=== PATIENT | female | born 1960 | race Two or more races ===

== ENCOUNTER 2023-11-12 16:18 | Emergency (ER) | payer OTHER ==
[~2023-11-12] VITALS: Ht 167.6 cm; Wt 130.0 kg
[2023-11-12 17:32] LABS: Basophils # (auto) 0 10 ^3/uL (0-0.2); Basophils % (auto) 0.4 % (0.0-2.0); Eosinophils # (auto) 0 10 ^3/uL (0-0.8); Eosinophils % (auto) 0.3 % (0.0-7.0); Hematocrit 40.3 % (36.0-46.0); Hemoglobin 13.5 g/dL (12.2-16.2); Lymphocytes # (auto) 1.2 10 ^3/uL (0.4-5.4); Lymphocytes % (auto) 19.4 % (10.0-50.0); Mean Corpuscular Hemoglobin 29.8 pg (28.0-32.0); Mean Corpuscular Hgb Conc. 33.4 g/dL (32.0-36.0); Mean Corpuscular Volume 89.3 fL (80.0-100.0); Monocytes # (auto) 0.5 10 ^3/uL (0-1.3); Monocytes % (auto) 8.4 % (0.0-12.0); Neutrophils # (auto) 4.6 10 ^3/uL (1.6-8.6); Neutrophils % (auto) 71.5 % (37.0-80.0); Nucleated Red Blood Cells % 0.1 %; Platelet Count (auto) 333 10^3/uL (140-450); Red Blood Cells 4.52 10^6/uL (4.0-5.20); Red Cell Distribution Width 13.5 % (11.8-14.3); White Blood Cell 6.4 10^3/uL (4.4-10.8)
[2023-11-12 17:45] LABS: Alanine Aminotransferase 28 U/L (7-40); Albumin 4.8 g/dL (3.2-4.8); Alkaline Phosphatase 82 U/L (46-116); Anion Gap 10 (5-15); Aspartate Aminotransferase 20 U/L (13-40); BUN/Creatinine Ratio 15.4 (10.0-20.0); Bilirubin, Total 0.7 mg/dL (0.2-1.0); Blood Urea Nitrogen 14 mg/dL (9-23); Carbon Dioxide 23 mmol/L (20-30); Chloride 107 mmol/L (98-107); Glucose 129 mg/dL (74-106); Potassium 3.7 mmol/L (3.5-5.1); Sodium 140 mmol/L (136-145); Total Protein 7.5 g/dL (5.7-8.2)
[2023-11-12 17:58] LABS: Urine Bacteria None Seen /hpf (None Seen)
[2023-11-12 18:29] LABS: Urine Blood Negative /uL (Negative); Urine Clarity Clear (Clear); Urine Color Colorless (Yellow); Urine Protein, UAD Negative (Negative); Urine Specific Gravity 1.005 (1.001-1.035); Urine Urobilinogen Normal (Negative); Urine WBC <1 /hpf (0 - 5)
[2023-11-12 20:30] VITALS: PULSE 78; RESP 14; TEMP 98.3; O2SAT 98
[2023-11-12] MEDS: SODIUM CHLORIDE 0.9% 1,000 ML IV ONE (20:43)
[2023-11-12] MEDS: IOHEXOL 350 MG/ML 100ML IJ ONE ×2 (21:29→21:30)
[2023-11-12 23:15] VITALS: BP 157/67; PULSE 62; RESP 14; O2SAT 98
[2023-11-12] MEDS: HYDROcodone-ACET 10/325MG TAB PO ONE (23:15)
== END 2023-11-13 01:26 | disposition left against medical advice (07) ==
LOC: ER 16:18
DX: R53.1 Weakness (principal); R68.84 Jaw pain; M54.2 Cervicalgia; H57.10 Ocular pain, unspecified eye
CPT/HCPCS: 36415; 70496; 71046; 80053; 81001; 82962; 84484; 85025; 93005; 96360; 99285; J7030; Q9967

== ENCOUNTER 2024-02-24 08:47 | Emergency (ER) | payer OTHER ==
[~2024-02-24] VITALS: Ht 167.6 cm; Wt 59.5 kg
[2024-02-24 09:16] VITALS: BP 176/98; PULSE 91; RESP 18; TEMP 99.1; O2SAT 98
--- NOTE | 2024-02-24 09:24 | ED.PDOC ---
History of Present Illness(SKN HPI Comments A 63 YEAR OLD FEMALE PRESENTS TO THE ED WITH COMPLAINT OF DOG BITE OF LEFT HAND. PATIENT STATES SHE WAS BITTEN BY HER DOG YESTERDAY NIGHT ON HER LEFT HAND AND IS NOW EXPERIENCING LEFT HAND REDNESS AND SWELLING TODAY. PATIENT WAS CONCERNED PUNCTURE WOUNDS ON HER LEFT HAND ARE INFECTED. PATIENT DENIES FEVER, CHILLS, SHORTNESS OF BREATH, CHEST PAIN, ABDOMINAL PAIN, NAUSEA, VOMITING, HEADACHE, OR OTHER COMPLAINTS. NO OTHER SYMPTOMS OR MODIFYING FACTORS AT THIS TIME. PATIENT IS ALERT, ORIENTED X 4, AND HAS STEADY GAIT. Chief Complaint: Animal Bite Time Seen by MD: 09:03 Primary Care Provider: [facility] History of Present Illness: Nurses Notes, Medications, Allergies Allergies: Coded Allergies: Nitrofurantoin (Verified Allergy, Unknown, 02/24/24) Uncoded Allergies: SULFA (Allergy, Unknown, 11/12/23) Home Meds Active Scripts Naproxen (Naproxen) 500 Mg Tab, 500 MG PO BID, #30 TAB Prov:MINNIE CARO 02/24/24 Amoxicillin & Pot Clavulanate (Augmentin) 500 Mg Tab, 1 TAB PO BID, #20 TAB Prov:MINNIE CARO 02/24/24 Information Source: Patient Mode of Arrival: Ambulatory Severity: Moderate Timing: Days Duration: Since onset, Days Prehospital treatment: None Location: Hand (LEFT HAND) Mechanism: Dog Occurence: Indoors Object: None Condition of Object: None Retained Foreign Body: No Wound Type: Puncture Immunization Status of Animal: Current Tetanus: UTD History of: None Associated Signs and Symptoms: Redness, Swelling, Pain Past Medical History PAST MEDICAL HISTORY: Anxiety Surgical History: Denies all surgeries FREIGHT SEPARATOR History: No Pertinent FREIGHT SEPARATOR History Family History Family History: Reviewed,noncontributory to illness, No family hx of Cancer, No family hx of DM, No family hx of Heart fatuma, No family hx of HTN, No family hx ofKidney fatuma, No family hx of Liver fatuma, No family hx of Lung fatuma, No family hx of Stroke Social History Smoker: Non-Smoker Alcohol: Denies ETOH Use Drugs: Denies Drug Use Lives In: Home Constitutional: reports: others (ANXIOUS ); denies: chills, diaphoresis, fatigue, fever, malaise, sweats, weakness EENTM: denies: blurred vision, double vision, ear bleeding, ear discharge, ear drainage, ear pain, ear ringing, eye pain, eye redness, hearing loss, mouth pain, mouth swelling, nasal discharge, nose bleeding, nose congestion, nose pain, photophobia, tearing, throat pain, throat swelling, voice changes, others Respiratory: denies: cough, hemoptysis, orthopnea, SOB at rest, shortness of breath, SOB with excertion, stridor, wheezing, others Cardiovascular: denies: chest pain, dizzy spells, diaphoresis, Dyspnea on exertion, edema, irregular heart beat, left arm pain, lightheadedness, palpitations, PND, syncope, others Gastrointestinal: denies: abdomen distended, abdominal pain, blood streaked bowels, constipated, diarrhea, dysphagia, difficulty swallowing, hematemesis, melena, nausea, poor appetite, poor fluid intake, rectal bleeding, rectal pain, vomiting, others Genitourinary: denies: abnormal vagina bleeding, burning, dyspareunia, dysuria, flank pain, frequency, hematuria, incontinence, pain, , vagina di scharge, urgency, others Neurological: denies: dizziness, fainting, headache, left sided numbness, left sided weakness, numbness, paresthesia, pre-existing deficit, right sided numbness, right sided weakness, seizure, speech problems, tingling, tremors, weakness, others Musculoskeletal: denies: back pain, gout, joint pain, joint swelling, muscle pain, muscle stiffness, neck pain, others Integumetry: reports: wounds (PUNCTURE WOUND OF LEFT HAND WITH REDNESS AND SWELLING); denies: bruises, change in color, change in hair/nails, dryness, laceration, lesions, lumps, rash, others Allergic/Immunocompromised: denies: Difficulty Healing, Frequent Infections, Hives, Itching, others Hematologic/Lymphatic: denies: anemia, blood clots, easy bleeding, easy bruising, swollen glands, others Endocrine: denies: excessive hunger, excessive sweating, excessive thirst, excessive urination, flushing, intolerance to cold, intolerance to heat, unexplained weight gain, unexplained weight loss, others Psychiatric: denies: anxiety, bipolar disorder, depression, hopeless, panic disorder, schizophrenia, sleepless, suicidal, others All Other Systems: Reviewed and Negative Physical Exam General Appearance: No Apparent Distress, Normal, Other (ANXIOUS ) HEENT: Normal ENT Inspection, PERRL/EOMI, Pharynx Normal, TMs Normal Neck: Full Range of Motion, Non-Tender, Normal, Normal Inspection Respiratory: Chest Non-Tender, Lungs Clear, No Accessory Muscle Use, No Respiratory Distress, Normal Breath Sounds Cardiovascular: No Edema, No JVD, No Murmur, No Gallop, Normal Peripheral Pulses, Regular Rate/Rhythm Breast Exam: Deferred Gastrointestinal: No Organomegaly, Non Tender, No Pulsatile Mass, Normal Bowel Sounds, Soft Genitalia: Deferred Pelvic: Deferred Rectal: Deferred Extremities: No calf tenderness, Normal capillary refill, Normal range of motion, No pedal edema, Tender (WITH TWO SMALL PUNCTURE WOUNDS ON LEFT DORSAL HAND, NO BONY TENDERNESS AND DEFORMITY. ) Musculoskeletal : Apperance: Normal Neurologic: Alert, acting manager II-XII nml as Tested, No Motor Deficits, Normal Affect, Normal Mood, No Sensory Deficits Cerebellar Function: Normal Reflexes: Normal Skin: Dry, Warm, Wounds (TWO SMALL PUNCTURE WOUNDS WITH LOCALIZED REDNESS AND MILD SWELLING ON LEFT DORSAL HAND, NO OPEN WOUND AND PUS DRAINAGE, NEUROVASCULAR INTACT, NORMAL ROM. ) Peripheral Pulses: 2+ carotid (R), 2+ carotid (L), 2+ Radial (R), 2+ Radial (L) Lymphatic: No Adenopathy Was a procedure done? Was a procedure done?: No Differential Diagnosis (INTG) Differential Diagnosis: Abrasion, Cellulitis, Contusion, Fracture, Puncture Wound Differential Diagnosis: N/A Differential Diagnosis: N/A Abscess: N/A Differential Diagnosis: Cellulitis, Puncture Wound, N/A X-Ray, Labs, Meds, VS Vital Signs Date Time Temp Pulse Resp B/P (MAP) Pulse Ox O2 Delivery O2 Flow Rate FiO2 02/24/24 09:16 99.1 91 18 176/98 (124) 98 99.1 02/24/24 09:16 91 18 98 Room Air* 0 21 02/24/24 09:05 99.1 91 18 176/98 (124) 98 Current Medications Medications (Trade) Dose Ordered Sig/Geno Route Start Time Stop Time Status Last Admin Ceftriaxone Sodium (Rocephin) 1,000 mg ONCE ONCE IM 02/24/24 09:30 02/24/24 09:31 DC 02/24/24 09:26 PATIENT: PIPO GERONIMO LACCT: [id number]: [id number] : 1960 LOC: ER ROOM / BED: / AGE / SEX: 63 / F ADM STATUS: REG ER SERVICE 0916 ORDERING PHYSICIAN: MINNIE CARO PROCEDURE(s): LHAN - L HAND 3V XRAY REASON: PUNCTURE WOUND POST DOG BITE ORDER NUMBER(s): [id number], ACCESSION NUMBER(s): [id number] EXAM: XR Left Hand Complete, 3 or More Views CLINICAL INDICATION: PUNCTURE WOUND POST DOG BITE TECHNIQUE: Frontal, lateral and oblique views of the left hand. COMPARISON: None FINDINGS: BONES/JOINTS: Degenerative changes of the intertarsal joints, intercarpal joints, and 1st carpometacarpal joints. SOFT TISSUES: Soft tissue swelling without fracture. No radiopaque foreign body. OTHER FINDINGS: . . IMPRESSION: 1. No radiopaque foreign body. 2. Soft tissue swelling without fracture. HS:Y ATED BY: AL RODRIGUEZ MD DICTATED DATE/TIME: 02/24/241003 SIGNED BY: AL RODRIGUEZ MD SIGNED DATE/TIME: 02/24/241003 CC: X-Ray, Labs, Meds, VS Comment EXTERNAL NOTES: NONE LABS ORDERED: NONE REVIEWED AND INTERPRETED RESULTS: NONE IMAGING ORDERED: XR HAND LT: [INTERPRETED BY ME. NO ACUTE FINDINGS. NO FRACTURES OR DISLOCATION. DJD OF HAND VISUALIZED. PENDING RADIOLOGIST REPORT.] INDEPENDENT HISTORIANS: NONE TREATMENT ORDERS: ROCEPHIN 1 G IM, ICE PACK AND ARM SLING APPLIED TO LEFT HAND. PATIENT'S CASE AND RESULTS HAVE BEEN DISCUSSED WITH THE ED ATTENDING PHYSICIAN AND THEY AGREE WITH MY PLAN OF CARE. I HAVE INSTRUCTED THE PATIENT TO FOLLOW UP WITH HER PCP IN 1-2 DAYS. THE PATIENT FULLY UNDERSTANDS AND ARE AWARE THEY NEED TO FOLLOW UP WITH THEIR PCP FOR FURTHER EVALUATION IF THEIR SYMPTOMS PERSIST. Images Reviewed?: Images reviewed and evaluated by me Time of 1ST Reevaluation: 10:17 Reevaluation 1ST: Improved Patient Education/Counseling: Diagnosis, Treatment, Need For Follow Up Family Education/Counseling: Diagnosis, Treatment, Need For Follow Up Medical Screening: No EMC Exist At This Time Departure 1 Departure Time of Disposition: 10:20 Impression: Primary Impression: Puncture wound of left hand Qualified Codes: S61.432A - Puncture wound without foreign body of left hand, initial encounter Additional Impression: Dog bite of left hand Qualified Codes: S61.452A - Open bite of left hand, initial encounter; W54.0XXA - Bitten by dog, initial encounter Disposition: HOME / SELF CARE / HOMELESS Condition: Stable Additional Instructions: FOLLOW-UP WITH PCP IN 1 TO 2 DAYS. TAKE MEDICATIONS PRESCRIBED. RETURN TO ED FOR ANY NEW OR WORSENING SYMPTOMS. e-Prescriptions Naproxen (Naproxen) 500 Mg Tab 500 MG PO BID, #30 TAB Prov: MINNIE CARO 02/24/24 Amoxicillin & Pot Clavulanate (Augmentin) 500 Mg Tab 1 TAB PO BID, #20 TAB Prov: MINNIE CARO 02/24/24 Discharged With: Self, Spouse Critical Care Note Critical Care Time?: No Stability Stability form required: No I personally scribed for MINNIE CARO ([email or web address]) on 02/24/24 at 09:24. Electronically submitted by Dennis Clarke ([email or web address]). I personally scribed for MINNIE CARO ([email or web address]) on 02/24/24 at 09:45. Electronically submitted by Dennis Clarke ([email or web address]). MINNIE CARO Feb 24, 2024 09:24
[2024-02-24] MEDS: cefTRIAXone SOD 1,000 MG VL IM ONE (09:26)
[2024-02-24] MEDS ORDERED: NAPR-746 PO (09:55)
[2024-02-24] MEDS ORDERED: AMOX500T86 PO (09:55)
--- NOTE | 2024-02-24 10:06 | DVH ---
EXAM: XR Left Hand Complete, 3 or More Views CLINICAL INDICATION: PUNCTURE WOUND POST DOG BITE TECHNIQUE: Frontal, lateral and oblique views of the left hand. COMPARISON: None FINDINGS: BONES/JOINTS: Degenerative changes of the intertarsal joints, intercarpal joints, and 1st carpometac arpal joints. SOFT TISSUES: Soft tissue swelling without fracture. No radiopaque foreign body. OTHER FINDINGS: . . IMPRESSION: 1. No radiopaque foreign body. 2. Soft tissue swelling without fracture. HS:Y
== END 2024-02-24 10:12 | disposition home or self-care (01) ==
LOC: ER 08:47
DX: S61.432A Puncture wound without foreign body of left hand, initial encounter (principal); Z88.8 Allergy status to other drugs, medicaments and biological substances; Z88.2 Allergy status to sulfonamides; W54.0XXA Bitten by dog, initial encounter; Y93.89 Activity, other specified; Y92.89 Other specified places as the place of occurrence of the external cause; Y99.8 Other external cause status
CPT/HCPCS: 73130; 96372; 99283; J0696

== ENCOUNTER 2024-03-08 18:01 | Emergency (ER) | payer OTHER ==
[~2024-03-08] VITALS: Ht 167.6 cm; Wt 59.3 kg
[~2024-03-08 18:01] MED LIST: AMOX500T86 PO; NAPR-746 PO
--- NOTE | 2024-03-08 18:36 | ECG ---
[facility] Test Date: 2024-03-08 Test Time: 18:19:40 Pat Name: PIPO GERONIMO Department: ER Room: Gender: F Geophysicist: DARVIN : 1960 Requested By: RYAN SIMPSON Order Number: [id number] Reading MD: Tr Trinh Measurements Intervals Olla Rate: 82 P: 79 VA: 135 QRS: 70 QRSD: 80 T: 55 QT: 362 QTc: 423 Interpretive Statements Sinus rhythm Electronically Signed On 03-15-2024 9:48:56 PST by Tr Trinh Please click the below link to view image of tracing.
--- NOTE | 2024-03-08 20:56 | ED.PDOC ---
Eye-HPI HPI Comments THIS IS A 63-YEAR-OLD FEMALE PRESENTS TO THE ED CHIEF COMPLAINT SINUS PAIN. PATIENT REPORTS CHRONIC HISTORY OF SINUS PRESSURE AND DRAINAGE X1 YEAR. SHE NOTES HAS A SCHEDULED APPOINTMENT WITH ENT IN MARCH. SHE JUST FINISHED A ROUND OF CIPRO. SHE HAS ALSO BEEN RECENTLY DIAGNOSED WITH CONNECTIVE TISSUE DISEASE BY ARTIST AND REPERTOIRE MANAGER IN HIS GOING TO BE PUT ON PLAQUENIL ONCE SHE FINISHES THE CIPRO WHICH SHE DOES ALSO HAVE A FOLLOW UP NEXT WEEK. SHE STATES HAS TRIED MULTIPLE [id number] REMEDIES SUCH FLONASE AND NETI POT WITH LITTLE RELIEF. SHE WAS SEEN AT URGENT CARE ABOUT 1 MONTH AGO AND WAS PRESCRIBED ANTIBIOTICS AND PREDNISONE WHICH SHE NOTES LITTLE RELIEF. SHE DENIES FEVERS, CHILLS, NUMBNESS, WEAKNESS, CHEST PAIN, NAUSEA, VOMITING, DIZZINESS, DIFFICULTY BREATHING OR SHORTNESS OF BREATH. Chief Complaint: Face pain Time Seen by MD: 18:19 Primary Care Provider: BANDAR Reviewed Notes: Nurses Notes, Medications, Allergies Allergies: Coded Allergies: Nitrofurantoin (Verified Allergy, Unknown, 02/24/24) Zinc (Verified Allergy, Unknown, 03/08/24) Uncoded Allergies: SULFA (Allergy, Unknown, 11/12/23) Home Meds Active Scripts Naproxen (Naproxen) 500 Mg Tab, 500 MG PO BID, #30 TAB Prov:MINNIE CARO 02/24/24 Amoxicillin & Pot Clavulanate (Augmentin) 500 Mg Tab, 1 TAB PO BID, #20 TAB Prov:MINNIE CARO 02/24/24 Information Source: Patient Mode of Arrival: Ambulatory Past Medical History PAST MEDICAL HISTORY: Anxiety Surgical History: Denies all surgeries COAL SAMPLE TESTER History: No Pertinent COAL SAMPLE TESTER History Family History Family History: Reviewed,noncontributory to illness, No family hx of Cancer, No family hx of DM, No family hx of Heart fatuma, No family hx of HTN, No family hx ofKidney fatuma, No family hx of Liver fatuma, No family hx of Lung fatuma, No family hx of Stroke Social History Smoker: Non-Smoker Alcohol: Denies ETOH Use Drugs: Denies Drug Use Lives In: Home Constitutional: denies: chills, diaphoresis, fatigue, fever, malaise, sweats, weakness, others EENTM: reports: nasal discharge, nose pain; denies: blurred vision, double vision, ear bleeding, ear discharge, ear drainage, ear pain, ear ringing, eye pain, eye redness, hearing loss, mouth pain, mouth swelling, nose bleeding, nose congestion, photophobia, tearing, throat pain, throat swelling, voice changes, others Respiratory: denies: cough, hemoptysis, orthopnea, SOB at rest, shortness of breath, SOB with excertion, stridor, wheezing, others Cardiovascular: denies: chest pain, dizzy spells, diaphoresis, Dyspnea on exertion, edema, irregular heart beat, left arm pain, lightheadedness, palpitations, PND, syncope, others Gastrointestinal: denies: abdomen distended, abdominal pain, blood streaked bowels, constipated, diarrhea, dysphagia, difficulty swallowing, hematemesis, melena, nausea, poor appetite, poor fluid intake, rectal bleeding, rectal pain, vomiting, others Genitourinary: denies: abnormal vagina bleeding, burning, dyspareunia, dysuria, flank pain, frequency, hematuria, incontinence, pain, , vagina discharge, urgency, others Neurological: denies: dizziness, fainting, headache, left sided numbness, left sided weakness, numbness, paresthesia, pre-existing deficit, right sided numbness, right sided weakness, seizure, speech problems, tingling, tremors, weakness, others Musculoskeletal: denies: back pain, gout, joint pain, joint swelling, muscle p ain, muscle stiffness, neck pain, others Integumetry: denies: bruises, change in color, change in hair/nails, dryness, laceration, lesions, lumps, rash, wounds, others Allergic/Immunocompromised: denies: Difficulty Healing, Frequent Infections, Hives, Itching, others Hematologic/Lymphatic: denies: anemia, blood clots, easy bleeding, easy bruising, swollen glands, others Endocrine: denies: excessive hunger, excessive sweating, excessive thirst, excessive urination, flushing, intolerance to cold, intolerance to heat, unexplained weight gain, unexplained weight loss, others Psychiatric: denies: anxiety, bipolar disorder, depression, hopeless, panic disorder, schizophrenia, sleepless, suicidal, others Physical Exam General Appearance: No Apparent Distress, Normal HEENT: Pharynx Normal, TMs Normal, Other (TENDERNESS ON PALPATION OVER MAXILLARY AND FRONTAL SINUSES TRACE EDEMA NO ERYTHEMA.) Neck: Full Range of Motion, Non-Tender, Normal, Normal Inspection Respiratory: Chest Non-Tender, Lungs Clear, No Accessory Muscle Use, No Respiratory Distress, Normal Breath Sounds Cardiovascular: No Edema, No JVD, No Murmur, No Gallop, Normal Peripheral Pulses, Regular Rate/Rhythm Breast Exam: Deferred Gastrointestinal: No Organomegaly, Non Tender, No Pulsatile Mass, Normal Bowel Sounds, Soft Genitalia: Deferred Pelvic: Deferred Rectal: Deferred Extremities: Normal capillary refill, Normal inspection, Normal range of motion, Non-tender, No pedal edema Musculoskeletal : Apperance: Normal Neurologic: Alert, fluid power mechanic II-XII nml as Tested, No Motor Deficits, Normal Affect, Normal Mood, No Sensory Deficits Cerebellar Function: Normal Reflexes: Normal Skin: Dry, Normal Color, Warm Lymphatic: No Adenopathy Was a procedure done? Was a procedure done?: No EENT DIFF Eye: N/A Other Differential Diagnosis AUTOIMMUNE CONNECTIVE TISSUE DISEASE X-Ray, Labs, Meds, VS Vital Signs Date Time Temp Pulse Resp B/P (MAP) Pulse Ox O2 Delivery O2 Flow Rate FiO2 03/08/24 18:19 82 03/08/24 18:11 98.3 73 18 161/98 (119) 98 X-Ray, Labs, Meds, VS Comment CT OF SINUSES REVIEWED NOTED CHRONIC SINUSITIS NO FOREIGN BODIES MENTIONED. THIS IS LIKELY SECONDARY TO HER AUTOIMMUNE CONNECTIVE TISSUE DISEASE DO NOT RECOMMEND AN ANTIBIOTIC AT THIS TIME SHE JUST FINISHED SEVERAL ROUNDS OF ANTI BIOTICS WITH NO IMPROVEMENT. FEEL SHE WILL BENEFIT FROM DECADRON SHOT UNTIL SHE FOLLOWS UP WITH HER ENT AND ARTIST AND REPERTOIRE MANAGER AND STARTING PLAQUENIL. PATIENT AGREES WITH THIS PLAN OF CARE AT THIS TIME. Time of 1ST Reevaluation: 20:54 Reevaluation 1ST: Improved Patient Education/Counseling: Diagnosis, Treatment, Prognosis, Need For Follow Up Family Education/Counseling: No Family Present Departure 1 Departure Time of Disposition: 20:54 Impression: Primary Impression: Chronic sinusitis Qualified Codes: J32.2 - Chronic ethmoidal sinusitis Additional Impression: Connective tissue disease Disposition: HOME / SELF CARE / HOMELESS Condition: Stable Additional Instructions: DISCUSSED, FOLLOW UP WITH YOUR ARTIST AND REPERTOIRE MANAGER SCHEDULED TO START PLAQUENIL. ALSO, KEEP APPOINTMENT WITH ENT IN MARCH. Discharged With: Self Critical Care Note Critical Care Time?: No Stability Stability form required: RYAN Raymond Mar 08, 2024 20:56
[2024-03-08 21:02] VITALS: BP 161/94; PULSE 82; RESP 17; TEMP 97.7; O2SAT 99
[2024-03-08] MEDS: DexAMETHasone SOD PHOS 10MG/1ML VIAL INJ IM ONE (21:16)
== END 2024-03-08 21:22 | disposition home or self-care (01) ==
LOC: ER 18:08
DX: J32.9 Chronic sinusitis, unspecified (principal); Z88.1 Allergy status to other antibiotic agents; Z88.2 Allergy status to sulfonamides; Z79.899 Other long term (current) drug therapy
CPT/HCPCS: 93005; 96372; 99283; J1100